=== PATIENT | male | born 1975 | race Hispanic/Latino ===

== ENCOUNTER 2021-10-08 13:08 | Emergency (ER) | payer BC ==
[2021-10-08 13:15] VITALS: BP 128/81
[2021-10-08] MEDS ORDERED: SODIUM CHLORIDE 0.9% 1000 ML 1,000 ML IV ONE (13:15)
[2021-10-08] MEDS ORDERED: KETOROLAC 30 MG/1 ML INJ IV ONE (13:15)
--- NOTE | 2021-10-08 13:39 | Emergency Department Report ---
ED Abdominal Pain HPI - General Chief Complaint: Abdominal Pain Stated Complaint: KIDNEY STONE Time Seen by Provider: 10/08/21 13:15 Source: patient Mode of arrival: Ambulatory Limitations: No Limitations - History of Present Illness Initial Comments: Patient presents with right flank pain and history of kidney stone. He passed a stone several weeks ago. He states he is having the same kind of pain. Pain is sharp and stabbing in the right flank area. It seems to be moving lower. He noticed some pink tinge to his urine. He is a insights manager. He asked for some Toradol parenterally. The physician on-call for the group today suggested to get seen. There was no history of trauma. He has no fevers or chills but is not bleeding from other sites. He has had kidney stones before. Severity scale (0 -10): 8 - Related Data Previous Rx's Medication Instructions Recorded Last Taken Type oxyCODONE [roxiCODONE] 5 mg PO Q6HR PRN #15 tablet 10/08/21 Unknown Rx Allergies Allergy/AdvReac Type Severity Reaction Status Date / Time hydrocodone Allergy Hives Verified 10/08/21 13:16 latex Allergy Rash Verified 10/08/21 13:16 ED Review of Systems ROS: Stated complaint: KIDNEY STONE Other details as noted in HPI Comment: All other systems reviewed and negative Constitutional: denies: fever Eyes: denies: vision change ENT: denies: epistaxis Respiratory: denies: cough Cardiovascular: denies: chest pain Gastrointestinal: denies: hematemesis Genitourinary: as per HPI Musculoskeletal: as per HPI Skin: denies: rash Hematological/Lymphatic: denies: easy bruising ED Past Medical Hx - Past Medical History Additional medical history: Ureteral colic - Medications Home Medications: Home Medications Medication Instructions Recorded Confirmed Last Taken Type oxyCODONE [roxiCODONE] 5 mg PO Q6HR PRN #15 tablet 10/08/21 Unknown Rx ED Physical Exam - General Limitations: No Limitations, Other (Pulse ox noted and normal) General appearance: alert, in no apparent distress, other (Uncomfortable) - Head Head exam: Present: atraumatic, normocephalic - Eye Eye exam: Present: normal appearance, EOMI - ENT ENT exam: Present: normal orophraynx, normal external ear exam - Neck Neck exam: Present: normal inspection. Absent: meningismus - Respiratory Respiratory exam: Present: normal lung sounds bilaterally. Absent: respiratory distress - Cardiovascular Cardiovascular Exam: Present: regular rate, normal rhythm - GI/Abdominal GI/Abdominal exam: Present: soft. Absent: distended - Back Exam Back exam: Present: CVA tenderness (R) (Mild). Absent: CVA tenderness (L) - Neurological Exam Neurological exam: Present: alert, oriented X3, CN II-XII intact, normal gait. Absent: motor sensory deficit - Psychiatric Psychiatric exam: Present: normal affect, normal mood - Skin Skin exam: Present: warm, dry ED Course Vital Signs 10/08/21 13:11 Pulse Rate 83 Respiratory 16 Rate Blood Pressure 128/81 [Left] O2 Sat by Pulse 95 Oximetry - Reevaluation(s) Reevaluation #1: 10/08/21 15:08 Labs have been ordered. They have been canceled and reordered. X-ray has been noted. Reevaluation #2: 10/08/21 15:32 Patient's pain is improved. UA and labs are pending. I suspect he will be discharged home. ED Medical Decision Making - Radiology Data Radiology results: report reviewed - Medical Decision Making Patient presented with flank pain and hematuria. He has symptoms that are consistent with ureteral colic. There is no acute kidney injury. There is no evidence of an infected stone. He does not have intractable pain suggestive of complete obstruction or high-grade obstruction. He does not appear to be septic or toxic. He was treated symptomatically and referred to urology for follow- up. Critical Care Time: No Critical care attestation.: If time is entered above; I have spent that time in minutes in the direct care of this critically ill patient, excluding procedure time. ED Disposition Clinical Impression: Acute flank pain, Gross hematuria Disposition: HOME / SELF CARE / HOMELESS Is pt being admited?: No Condition: Stable Instructions: Abdominal Pain, Adult, [id number], Flank Pain, Adult, [id number] Additional Instructions: Drink plenty of water. Strain the urine. Return for problems. Follow-up with your regular doctor and the urologist for recheck. Prescriptions: oxyCODONE [roxiCODONE] 5 mg PO Q6HR PRN #15 tablet PRN Reason: Pain Referrals: PRIMARY MD JENNA [Primary Care Provider] - 3-5 Days JEFF CHÁVEZ MD [Staff Physician] - 3-5 Days
--- NOTE | 2021-10-08 15:02 | XRay Report ---
ABDOMEN 1 VIEW, 10/08/2021 INDICATION / CLINICAL INFORMATION: Right flank pain COMPARISON: No relevant prior study is available for comparison. FINDINGS: TUBES / LINES: None. BOWEL GAS PATTERN: The bowel gas pattern appears nonobstructive. ADDITIONAL FINDINGS: There is a 4 mm punctate radiodensity projecting over the expected position of t he upper pole of the right kidney. IMPRESSION: 1. Punctate 4 mm radiodensity projecting over the expected position of the upper pole of the right ki dney which may represent an intrarenal stone. Signer Name: Keisha Antonio MD Signed: 10/08/2021 2:58 PM Workstation Name: [id number]
[2021-10-08] MEDS ORDERED: ACETAMINOPHEN 500 MG TAB PO ONE (15:31)
[2021-10-08 15:33] LABS: Bilirubin,Urine NEG (Negative); Blood,Urine SM (Negative); Color,Urine Yellow (Yellow); Mucus,Urine FEW /HPF; Protein,Urine <15 mg/dL mg/dL (Negative); Urobilinogen,Urine < 2.0 mg/dL (<2.0)
[2021-10-08 15:42] LABS: Calcium 8.9 mg/dL (8.4-10.2)
== END 2021-10-08 16:30 | disposition home or self-care (01) ==
LOC: ED 13:08
DX: R31.0 Gross hematuria (principal); Z91.048 Other nonmedicinal substance allergy status; Z91.09 Other allergy status, other than to drugs and biological substances; Z79.899 Other long term (current) drug therapy
CPT/HCPCS: 36415; 74018; 80048; 81001; 96361; 96374; 99284; J1885; J7030; 99283; Q0162